=== PATIENT | female | born 1945 | race Caucasian/White ===

== ENCOUNTER 2020-06-25 11:58 | Emergency (ER) | payer MEDICARE, SELFPAY ==
[2020-06-25 12:05] VITALS: BP 139/80; PULSE 81; RESP 18; TEMP 36.4; O2SAT 100; BMI 21.5
--- NOTE | 2020-06-25 12:08 | XR_ITS ---
WS: [id number] Exam: XR chest 1V portable [id number] Date/Time of Exam: 06/25/2020 12:08 PM Reason For Exam: htn No priors. The lungs are fully inflated and clear. Normal cardiomediastinal structures and bony elements. Soft t issue calcification along the left humeral head may reflect calcific tendinitis or bursitis. Orthoped ic hardware partially visualized in the lower right humerus. XR/XR chest 1V portable [id number] IMPRESSION: 1. No acute cardiopulmonary finding.
--- NOTE | 2020-06-25 12:09 | ECG_ITS ---
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 Measurements Intervals [place] Rate: 78 P: 51 TN: 161 QRS: 40 QRSD: 137 T: 44 QT: 401 QTc: 458 Interpretive Statements SINUS RHYTHM POSSIBLE LEFT ATRIAL ENLARGEMENT [-0.1mV P WAVE IN V1/V2] RIGHT BUNDLE BRANCH BLOCK [120+ ms QRS DURATION, UPRIGHT V1, 40+ ms S IN I/aVL/V4/V5/V6] POSSIBLE SEPTAL MYOCARDIAL INFARCTION , PROBABLY OLD [30 ms Q WAVE IN V1/V2] No previous ECG available for comparison Electronically Signed On 06-25-2020 17:06:09 [employer]ORS ASSEMBL[employer] by Ac Schwab M.D. [id number]
[2020-06-25 12:29] VITALS: BP 146/78; PULSE 82; O2SAT 99
--- NOTE | 2020-06-25 12:31 | W.ED.GENADLT ---
HPI - General Adult General: Chief complaint: General Medical Stated complaint: fluctuating bp Time Seen by Provider: 06/25/20 12:24 History of Present Illness: HPI narrative: Patient was getting ready to start PT session today and she felt nauseous to check her blood pressure was over 200 systolic at physical therapy. Blood pressure is fine here. Patient says he just been feeling nauseated weak for the last 2 or 3 weeks. Has been seeing her doctor pete Jefferson. Recently had an echocardiogram done. Is diabetic she said her sugars fluctuate but nothing too high. She denies any shortness of breath chest pain diarrhea vomiting fever chills Onset (ago): day(s) Associated symptoms: Reports nausea; Deny chest pain, dyspnea, headache(s) or rash Review of Systems Narrative: Patient also relates that she recently been treated for UTI and dog bites had a staph infection just got off antibiotics 2 days ago. Const: Denies: fever(s), chills or body aches Eyes: Denies: change in vision or blurry vision ENMT: Denies: throat pain or nasal congestion Card: Denies: chest pain or dyspnea on exertion Resp: Denies: dyspnea, productive cough or non-productive cough GI: Reports: nausea Musc: Denies: extremity pain Skin/Breast: Denies: rash Neuro: Denies: headache(s) Psych: Denies: anxiety or depression Adria/Lymph: Denies: easy bruising Physical Exam Narrative: EXAM NARRATIVE: Extremities cool , patient does have pallor Const: COMMON NORMALS: no acute distress, average body habitus and patient oriented x3 HENMT: COMMON NORMALS: normocephalic HEAD & SCALP: normal to inspection and normocephalic FACE & SINUS: normal facial exam Eye: COMMON NORMALS: conjunctivae normal GENERAL EYE: appearance normal, both eyes and all related structures CONJUNCTIVA: Yes conjunctivae normal Neck/C-Spine: COMMON NORMALS: no JVD Chest: COMMONS NORMALS: normal inspection of the chest Resp: COMMON NORMALS: normal respiratory effort and clear to auscultation bilaterally AUSCULTATION: clear to auscultation bilaterally Cardio: COMMON NORMALS: no JVD, regular rate and regular rhythm RATE: regular rate RHYTHM: regular rhythm GI: COMMON NORMALS: Normal to inspection, nondistended, normoactive bowel sounds present Extremity: COMMON NORMALS: normal to inspection and full ROM Neuro: COMMON NORMALS: patient oriented x3 Course Vital Signs: Vital signs: Vital Signs Temperature 97.5 F L 06/25/20 12:05 Pulse Rate 81 06/25/20 14:19 Respiratory Rate 18 06/25/20 12:05 Blood Pressure 147/65 06/25/20 14:19 Pulse Oximetry 100 06/25/20 14:19 MDM - General Adult MDM Narrative: Medical decision making narrative: Patient patient's history and that state patient saying that her urine is pink and a foul-smelling will go ahead and treat for dysuria/UTI. Patient should get it rechecked at her doctor's office next week. Patient blood pressures been fine since she has been here. [place] any chest pain shortness of breath has just been nauseated. Consistent with her possible dysuria UTI symptoms. 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 Lab Data: Labs: Lab Results 06/25/20 06/25/20 06/25/20 Range/Units 13:00 13:00 13:00 WBC Cancelled Corrected WBC Cancelled RBC Cancelled Hgb Cancelled Hct Cancelled MCV Cancelled MCH Cancelled MCHC Cancelled RDW Cancelled Plt Count Cancelled MPV Cancelled Gran % Cancelled Neut % (Auto) Cancelled Lymph % (Auto) Cancelled Hood % (Auto) Cancelled Eos % (Auto) Cancelled Baso % (Auto) Cancelled Neut # (Auto) Cancelled Lymph # (Auto) Cancelled Hood # (Auto) Cancelled Eos # (Auto) Cancelled Baso # (Auto) Cancelled Absolute Gran (aut o) Cancelled Nucleated RBC % (a uto) Cancelled Nucleated RBCs # Cancelled Sodium Cancelled Potassium Cancelled Chloride Cancelled Carbon Dioxide Cancelled Anion Gap Cancelled BUN Cancelled Creatinine Cancelled GFR Calculation Cancelled Glucose Cancelled Calculated Osmolal ity Cancelled Calcium Cancelled Total Bilirubin Cancelled AST Cancelled ALT Cancelled Alkaline Phosphata se Cancelled Troponin T Gen 5 n g/L Cancelled NT-Pro-B Natriuret Pep Cancelled Total Protein Cancelled Albumin Cancelled Globulin Cancelled 06/25/20 06/25/20 06/25/20 Range/Units 13:30 13:30 14:24 WBC 12.7 H Corrected WBC RBC 3.99 L Hgb 12.4 Hct 37.7 MCV 94.5 MCH 31.1 MCHC 32.9 RDW 13.1 Plt Count 248 MPV 9.9 Gran % Neut % (Auto) 81.1 Lymph % (Auto) 12.4 Hood % (Auto) 5.5 Eos % (Auto) 0.3 Baso % (Auto) 0.2 Neut # (Auto) 10.30 H Lymph # (Auto) 1.6 Hood # (Auto) 0.7 Eos # (Auto) 0.0 Baso # (Auto) 0.0 Absolute Gran (aut o) Nucleated RBC % (a uto) 0 Nucleated RBCs # 0.0 Sodium 138 Potassium 4.4 Chloride 103 Carbon Dioxide 24 Anion Gap 15.4 BUN 16 Creatinine 0.5 GFR Calculation Not Reportable Glucose 113 Calculated Osmolal ity 288 Calcium 10.0 Total Bilirubin 0.5 AST 22 ALT 45 H Alkaline Phosphata se 74 Troponin T Gen 5 n g/L 9 NT-Pro-B Natriuret Pep 902 H Total Protein 6.9 Albumin 4.0 Globulin 2.9 Discharge Plan Discharge Patient Disposition: Home Clinical Impression: Dysuria Condition: Stable Prescriptions: New Macrobid 100 mg capsule 100 mg PO BID 3 Days Qty: 6 RF: 0 Zofran 4 mg tablet 4 mg PO Q8H 3 Days Qty: 9 RF: 0 No Action atorvastatin 40 mg tablet 40 mg PO BEDTIME RF: 0 metoprolol tartrate 100 mg Tablet 50 mg PO BID RF: 0 metformin 850 mg tablet 850 mg PO BID RF: 0 Vitamin B-12 1,000 mcg Tablet 1,000 mcg PO DAILY RF: 0 clopidogrel 75 mg tablet 75 mg PO DAILY RF: 0 aspirin 81 mg Tablet,Chewable 81 mg PO DAILY RF: 0 ranolazine 500 mg tablet extended release 12 hr 500 mg PO BID RF: 0 Vitamin D3 50 mcg (2,000 unit) Tablet 50 mcg PO DAILY RF: 0 Tresiba FlexTouch U-100 100 unit/mL (3 mL) Insulin Pen 16 unit SUBCUT DAILY@1200 RF: 0 Ozempic 0.25 mg or 0.5 mg(2 mg/1.5 mL) Pen Injector 0.5 mg SUBCUT Q7D RF: 0 Discharge Orders: Discharge ED (Routine); Ordered 06/25/20 Ordered By: Thomas Hearn Referrals: Jennifer Perez FNP [Primary Care Provider] - Discharge Diet: Advance as tolerated Discharge Activity: Increase activity as tolerated Activity Restrictions/Additional Instructions: Follow-up with medical provider as directed. Take medications as prescribed. Return to the ER or your medical provider if condition worsens. Please read and understand discharge instructions. If any questions ask please. Have urine rechecked next week your primary care provider's office Coding Level of Care Code ED Jacquard Plate Maker for Chg Fwd Exam Comprehensive
[2020-06-25 13:14] VITALS: BP 146/78; PULSE 81; O2SAT 98
[2020-06-25 14:02] LABS: Troponin T (5th) Once 9 ng/L (0-10)
[2020-06-25 14:19] VITALS: BP 147/65; PULSE 81; O2SAT 100
[2020-06-25] MEDS: ondansetron 4 MG Tablet PO (14:21)
[2020-06-25 14:33] LABS: Alanine Aminotransferase 45 U/L (0-33); Alkaline Phosphatase 74 IU/L (35-105); Anion Gap 15.4 (5-19); Aspartate Amino Transferase 22 U/L (0-32); Blood Urea Nitrogen 16 mg/dL (8-23); Carbon Dioxide 24 mmol/L (22-29); Chloride 103 mmol/L (98-107); Globulin 2.9 g/dL (1.3-4.6); Glucose 113 mg/dL (65-115); NT Pro B Type Natriuretic Pept 902 pg/mL (0-450); Osmolality Calculated 288 mOsm/kg (285-295); Potassium 4.4 mmol/L (3.5-5.1); Sodium 138 mmol/L (136-145); Total Bilirubin 0.5 mg/dL (0.15-1.2); Total Protein 6.9 g/dL (6.6-8.7)
[2020-06-25 14:35] LABS: Basophils % 0.2 %; Eosinophils % 0.3 %; Hematocrit 37.7 % (37.0-47.0); Hemoglobin 12.4 g/dL (11.5-15.3); Lymphocytes # 1.6 10^3/uL (0.8-4.8); Lymphocytes % 12.4 %; Mean Corpuscular HGB Conc 32.9 g/dL (30.0-36.0); Mean Corpuscular Hemoglobin 31.1 pg (28.0-34.0); Mean Corpuscular Volume 94.5 fL (81-99); Mean Platelet Volume 9.9 fL (7.4-10.4); Monocytes # 0.7 10^3/uL (0.2-0.9); Monocytes % 5.5 %; Neutrophils % 81.1 %; Nucleated Red Blood Cells % 0 %; Platelet Count 248 10^3/cmm (130-400); Red Blood Count 3.99 10^6/uL (4.1-5.3); Red Cell Distribution Width 13.1 % (12.1-15.1); White Blood Count 12.7 10^3/uL (4.0-10.0)
[2020-06-25 14:43] VITALS: BP 147/65; PULSE 81; O2SAT 99
== END 2020-06-25 14:44 | disposition home or self-care (01) ==
PROVIDERS: Emergency Provider Nurse Practitioner Family; PCP Nurse Practitioner Family
DX: R30.0 Dysuria (principal); Z79.02 Long term (current) use of antithrombotics/antiplatelets; Z79.82 Long term (current) use of aspirin; Z79.4 Long term (current) use of insulin
CPT/HCPCS: 12345; 36415; 71045; 80053; 83880; 84484; 85025; 93005; 99281; 99283; Q0162